=== PATIENT | male | born 1950 | race Caucasian/White ===

== ENCOUNTER 2022-06-02 13:11 | Outpatient (CLI) | payer MEDICARE, OTHER | END 2022-06-02 13:12 | disposition home or self-care (01) | LOC: RAD 13:11 | PROVIDERS: ATTEND Internal Medicine Critical Care Medicine | DX: R06.00 Dyspnea, unspecified (principal) | CPT/HCPCS: 71046 ==

== ENCOUNTER 2022-07-14 09:07 | Outpatient (CLI) | payer MEDICARE, OTHER | END 2022-07-14 09:08 | disposition home or self-care (01) | LOC: CT 09:07 | PROVIDERS: ATTEND Internal Medicine Critical Care Medicine | DX: R59.0 Localized enlarged lymph nodes (principal); K76.9 Liver disease, unspecified; C79.51 Secondary malignant neoplasm of bone; C78.7 Secondary malignant neoplasm of liver and intrahepatic bile duct; R91.8 Other nonspecific abnormal finding of lung field; I70.90 Unspecified atherosclerosis | CPT/HCPCS: 71250; 78815; A9552 ==

== ENCOUNTER 2022-07-24 14:41 | Outpatient (CLI) | payer MEDICARE, OTHER | END 2022-07-24 14:42 | disposition home or self-care (01) | LOC: LABBT 14:41 | PROVIDERS: ATTEND Internal Medicine Critical Care Medicine | DX: Z20.822 Contact with and (suspected) exposure to COVID-19 (principal) | CPT/HCPCS: 87811 ==

== ENCOUNTER 2022-07-28 08:25 | Day surgery (SDC) | payer MEDICARE, OTHER ==
[2022-07-27 11:10] VITALS: BMI 27.2
[2022-07-28 08:46] LABS: #Eosinphils 0.2 thou/uL (0.0-0.7); #Lymphocytes 1.2 thou/uL (1.20-3.40); #Monocytes 0.6 thou/uL (0.11-0.59); #Neutrophils 5.9 thou/uL (1.40-6.50); %Basophils 0.6 % (0.0-1.0); %Eosinophils 2.3 % (0.0-10.0); %Lymphocytes 15.2 % (21.0-51.0); %Monocytes 7.8 % (0.0-10.0); %Neutrophils 74.1 % (42.0-75.0); Hemoglobin 15.4 g/dL (14.0-18.0); Mean Corpuscular HGB CONC 31.9 g/dL (32.0-36.0); Mean Corpuscular Hemoglobin 29.9 pg (27.0-31.0); Mean Corpuscular Volume 93.8 fL (78.0-98.0); Mean Platelet Volume 8.9 fL (7.4-10.4); Platelet Count 177 thou/uL (130-400); RBC Distribution Width 14.1 % (11.5-14.5); Red Blood Cell (RBC) Count 5.16 mill/uL (4.70-6.10); White Blood Cell (WBC) Count 7.9 thou/uL (4.8-10.8)
[2022-07-28 09:37] LABS: INR-International Normal Ratio 1.2; PTT 33.1 sec (22.9-36.1); Prothrombin Time 15.6 sec (12.0-14.7)
[2022-07-28 09:56] VITALS: BP 142/93; TEMP 98
== END 2022-07-28 14:06 | disposition home or self-care (01) ==
LOC: CT 08:25
PROVIDERS: ATTEND Internal Medicine Critical Care Medicine
PROC: 0FB23ZX Excision of Left Lobe Liver, Percutaneous Approach, Diagnostic (ICD-10-PCS; principal; 2022-07-28)
DX: C7B.8 Other secondary neuroendocrine tumors (principal); C80.1 Malignant (primary) neoplasm, unspecified; J44.9 Chronic obstructive pulmonary disease, unspecified; I10 Essential (primary) hypertension; I25.10 Atherosclerotic heart disease of native coronary artery without angina pectoris; E78.5 Hyperlipidemia, unspecified; I49.9 Cardiac arrhythmia, unspecified; Z79.01 Long term (current) use of anticoagulants; Z79.82 Long term (current) use of aspirin; Z79.899 Other long term (current) drug therapy; Z88.0 Allergy status to penicillin; Z88.8 Allergy status to other drugs, medicaments and biological substances; Z95.2 Presence of prosthetic heart valve; Z95.5 Presence of coronary angioplasty implant and graft
CPT/HCPCS: 36415; 47000; 77012; 85025; 85610; 85730; 88307; 88313; 88333; 88341; 88342

== ENCOUNTER 2022-08-12 12:26 | Outpatient (CLI) | payer MEDICARE, OTHER | END 2022-08-12 12:27 | disposition home or self-care (01) | LOC: SCSMRI 12:26 | PROVIDERS: ATTEND Internal Medicine | DX: C34.90 Malignant neoplasm of unspecified part of unspecified bronchus or lung (principal); G31.9 Degenerative disease of nervous system, unspecified; I69.398 Other sequelae of cerebral infarction; G93.89 Other specified disorders of brain; R90.82 White matter disease, unspecified | CPT/HCPCS: 70553 ==

== ENCOUNTER 2022-08-27 12:10 | Outpatient (CLI) | payer MEDICARE, OTHER | END 2022-08-27 12:11 | disposition home or self-care (01) | LOC: BICRAD 12:10 | PROVIDERS: ATTEND Internal Medicine | DX: C34.90 Malignant neoplasm of unspecified part of unspecified bronchus or lung (principal); R05.9 Cough, unspecified; J98.4 Other disorders of lung; M41.9 Scoliosis, unspecified | CPT/HCPCS: 71046 ==

== ENCOUNTER 2022-09-17 08:45 | Outpatient (CLI) | payer MEDICARE, OTHER | END 2022-09-17 08:46 | disposition home or self-care (01) | LOC: PET 08:45 | PROVIDERS: ATTEND Internal Medicine | DX: C34.90 Malignant neoplasm of unspecified part of unspecified bronchus or lung (principal); Z79.899 Other long term (current) drug therapy | CPT/HCPCS: 78815; A9552 ==

== ENCOUNTER 2022-10-23 10:52 | Day surgery (SDC) | payer MEDICARE, OTHER ==
[2022-10-23] MEDS ORDERED: Acetaminophen 500 MG TAB ONE (11:51)
[2022-10-23] MEDS ORDERED: diphenhydrAMINE 25 MG CAP ONE (11:51)
[2022-10-23 15:04] VITALS: BP 107/71; TEMP 97.7
== END 2022-10-23 15:05 | disposition home or self-care (01) ==
LOC: ONC/OP 10:52
PROVIDERS: ATTEND Internal Medicine
PROC: 30233N1 Transfusion of Nonautologous Red Blood Cells into Peripheral Vein, Percutaneous Approach (ICD-10-PCS; principal; 2022-10-23)
DX: D64.9 Anemia, unspecified (principal); D69.6 Thrombocytopenia, unspecified; Z88.0 Allergy status to penicillin; Z88.8 Allergy status to other drugs, medicaments and biological substances; R05.9 Cough, unspecified
CPT/HCPCS: 36430; 71046; 86850; 86900; 86901; J1642; P9016

== ENCOUNTER 2022-11-03 13:15 | Outpatient (CLI) | payer MEDICARE, OTHER | END 2022-11-03 13:16 | LOC: PET 13:15 | PROVIDERS: ATTEND Internal Medicine | DX: C34.90 Malignant neoplasm of unspecified part of unspecified bronchus or lung (principal); Z79.899 Other long term (current) drug therapy | CPT/HCPCS: 78815; A9552 ==

== ENCOUNTER 2023-01-01 17:35 | Inpatient (IN) | payer MEDICARE, OTHER ==
[2023-01-01 18:01] LABS: Hemoglobin 14.8 g/dL (14.0-18.0); Mean Corpuscular HGB CONC 31.1 g/dL (32.0-36.0); Mean Corpuscular Hemoglobin 32.7 pg (27.0-31.0); Mean Platelet Volume 8.7 fL (7.4-10.4); Platelet Count 166 10x3/uL (130-400); RBC Distribution Width 13.7 % (11.5-14.5); Red Blood Cell (RBC) Count 4.53 mill/uL (4.70-6.10); White Blood Cell (WBC) Count 6.4 10x3/uL (4.8-10.8)
[2023-01-01 18:07] LABS: #Eosinphils 0.2 thou/uL (0.0-0.7); #Lymphocytes 1.2 thou/uL (1.20-3.40); #Monocytes 0.6 thou/uL (0.11-0.59); #Neutrophils 4.3 thou/uL (1.40-6.50); %Basophils 0.7 % (0.0-1.0); %Eosinophils 3.3 % (0.0-10.0); %Lymphocytes 18.7 % (21.0-51.0); %Monocytes 9.8 % (0.0-10.0); %Neutrophils 67.4 % (42.0-75.0)
[2023-01-01 18:10] LABS: INR-International Normal Ratio 1.2; Prothrombin Time 15.8 sec (12.0-14.7)
[2023-01-01 18:11] LABS: PTT 31.5 sec (22.9-36.1)
[2023-01-01 18:20] LABS: ALT (SGPT) 8 U/L (8-55); AST (SGOT) 17 U/L (5-34); Albumin 3.9 g/dL (3.4-4.8); Alkaline Phosphatase 137 U/L (40-110); Anion Gap 12 mmol/L (10-20); BUN (Urea Nitrogen) 15 mg/dL (8.4-25.7); Bilirubin, Total 0.5 mg/dL (0.2-1.2); Calc. Creatinine Clearance 0 mL/min (70-130); Calcium 9.7 mg/dL (7.8-10.44); Carbon Dioxide 30 mmol/L (23-31); Chloride 103 mmol/L (98-107); Estimated GFR 90; Globulin 4.1 g/dL (2.4-3.5); Glucose 89 mg/dL (83-110); Potassium 5.1 mmol/L (3.5-5.1); Sodium 140 mmol/L (136-145)
[2023-01-01 18:22] LABS: MDiff Complete? YES
[2023-01-01 18:23] LABS: Macrocytosis SLIGHT = 6-15 cells (100X) (0-5/hpf); Platelet Morphology Comment Appears Adequate
[2023-01-01] MEDS ORDERED: Acetaminophen 325 MG TAB PO PRN (19:56)
[2023-01-01] MEDS ORDERED: Ondansetron PF 4 MG/2 ML Vial IVP PRN (19:56)
[2023-01-01] MEDS ORDERED: hydrALAZINE 20 MG/ML VIAL SLOW IVP PRN (19:56)
[2023-01-01] MEDS ORDERED: Ondansetron ODT 4 MG TAB PO PRN (19:56)
[2023-01-01 20:25] LABS: Hemoglobin A1c 4.7 % (4.0-6.0)
[2023-01-01] MEDS ORDERED: Atorvastatin Calcium 40 MG TAB PO SCH (21:00)
[2023-01-01 23:07] VITALS: BMI 24.7
[2023-01-01] MEDS: Apixaban 5 MG TAB PO SCH (23:41)
[2023-01-02 00:30] LABS: Bacteria/HPF None Seen HPF (None Seen); Bilirubin Negative (Negative); Blood, Urine Negative (Negative); CAUTI Indications for Culture Alt mental st,lethar; Clarity Clear (Clear); Glucose, Urine (Dipstick) Normal (Negative); Ketone, Urine Negative (Negative); Leukocyte Negative Leu/uL (Negative); Nitrite Negative (Negative); Protein, Urine (Dipstick) Negative (Neg-Trace); RBC/HPF 0-3 HPF (0-3); Specific Gravity, Urine 1.013 (1.002-1.036); Squamous Epithelial 0-3 HPF (0-3); Urobilinogen Normal mg/dL (Less than 2); WBC/HPF 0-3 HPF (0-3)
[2023-01-02 00:31] LABS: Urine Culture Reflex No No
[2023-01-02 05:47] LABS: #Eosinphils 0.2 thou/uL (0.0-0.7); #Lymphocytes 1.3 thou/uL (1.20-3.40); #Monocytes 0.8 thou/uL (0.11-0.59); #Neutrophils 5.2 thou/uL (1.40-6.50); %Basophils 0.7 % (0.0-1.0); %Eosinophils 3.1 % (0.0-10.0); %Lymphocytes 17.3 % (21.0-51.0); %Monocytes 10.9 % (0.0-10.0); %Neutrophils 68.1 % (42.0-75.0); Hemoglobin 13.8 g/dL (14.0-18.0); Mean Corpuscular HGB CONC 31.5 g/dL (32.0-36.0); Mean Corpuscular Hemoglobin 32.7 pg (27.0-31.0); Mean Platelet Volume 8.6 fL (7.4-10.4); Platelet Count 142 10x3/uL (130-400); RBC Distribution Width 13.7 % (11.5-14.5); Red Blood Cell (RBC) Count 4.22 mill/uL (4.70-6.10); White Blood Cell (WBC) Count 7.6 10x3/uL (4.8-10.8)
[2023-01-02 06:11] LABS: Anion Gap 12 mmol/L (10-20); BUN (Urea Nitrogen) 15 mg/dL (8.4-25.7); Calc. Creatinine Clearance 98 mL/min (70-130); Calcium 9.3 mg/dL (7.8-10.44); Carbon Dioxide 25 mmol/L (23-31); Chloride 105 mmol/L (98-107); Cholesterol 127 mg/dl (< 200 Desired); Estimated GFR 95; Glucose 99 mg/dL (83-110); HDL Cholesterol 21 mg/dL (>60 Neg Risk); LDL Cholesterol, Calculated 45 mg/dL; Magnesium 1.3 mg/dL (1.6-2.6); Potassium 3.5 mmol/L (3.5-5.1); Sodium 138 mmol/L (136-145); Triglycerides 303 mg/dL (Less than 150)
[2023-01-02] MEDS: Aspirin 81 mg Enteric Coated Tablet PO SCH (10:06)
[2023-01-02] MEDS: Apixaban 5 MG TAB PO SCH ×2 (10:06→20:18)
[2023-01-02] MEDS ORDERED: Albuterol 200 PUFF (6.7GM INHALER) INH PRN (10:28)
[2023-01-02] MEDS: Mometasone 200 MCG/Formoterol 5 MCG 120 PUFF INHALER INH SCH (20:06)
[2023-01-02] MEDS: Vit A,C & E/Lutein/Minerals Tablet PO SCH (20:18)
[2023-01-02] MEDS: Cholecalciferol 1,000 UNITS (25 MCG) TAB PO SCH (20:18)
[2023-01-02] MEDS ORDERED: VIT C PO SCH (21:00)
[2023-01-02] MEDS ORDERED: COPPER PO SCH (21:00)
[2023-01-02] MEDS ORDERED: ZINC PO SCH (21:00)
[2023-01-02] MEDS ORDERED: [UNRECOGNIZED DRUG - OTHER] PO SCH (21:00)
[2023-01-02] MEDS ORDERED: VIT A PO SCH (21:00)
[2023-01-02] MEDS ORDERED: Non-Formulary Item 1 EACH (Trazodone Hcl [Trazodone Hcl] 100 MG Tablet) PO SCH (21:00)
[2023-01-02] MEDS ORDERED: Digoxin 0.25 MG TAB PO SCH (21:00)
[2023-01-02] MEDS ORDERED: Non-Formulary Item 1 EACH (Budesonide-Formoterol [Symbicort 160-4.5] 160 MG/4.5 MG Aer) INH SCH (21:00)
[2023-01-02] MEDS ORDERED: Non-Formulary Item 1 EACH (Cholecalciferol (Vitamin D3) [Vitamin D3] 5,000 UNITS Capsule) PO SCH (21:00)
[2023-01-02] MEDS ORDERED: Atorvastatin Calcium 40 MG TAB PO SCH (21:00)
[2023-01-02] MEDS ORDERED: traZODone HCl 50 MG TAB PO SCH (21:00)
[2023-01-02] MEDS ORDERED: VIT E PO SCH (21:00)
[2023-01-03 06:27] LABS: #Basophils 0.1 thou/uL (0.0-0.2); #Eosinphils 0.2 thou/uL (0.0-0.7); #Lymphocytes 1.2 thou/uL (1.20-3.40); #Monocytes 0.7 thou/uL (0.11-0.59); #Neutrophils 2.9 thou/uL (1.40-6.50); %Eosinophils 3.2 % (0.0-10.0); %Lymphocytes 23.7 % (21.0-51.0); %Monocytes 13.7 % (0.0-10.0); %Neutrophils 58.4 % (42.0-75.0); Hemoglobin 13.7 g/dL (14.0-18.0); Mean Corpuscular Hemoglobin 31.6 pg (27.0-31.0); Mean Platelet Volume 9.2 fL (7.4-10.4); Platelet Count 118 10x3/uL (130-400); RBC Distribution Width 13.8 % (11.5-14.5); Red Blood Cell (RBC) Count 4.35 mill/uL (4.70-6.10); White Blood Cell (WBC) Count 4.9 10x3/uL (4.8-10.8)
[2023-01-03 06:42] LABS: BUN (Urea Nitrogen) 18 mg/dL (8.4-25.7); Calc. Creatinine Clearance 90 mL/min (70-130); Calcium 9.8 mg/dL (7.8-10.44); Carbon Dioxide 19 mmol/L (23-31); Chloride 109 mmol/L (98-107); Estimated GFR 92; Glucose 98 mg/dL (83-110); Potassium 4.8 mmol/L (3.5-5.1); Sodium 138 mmol/L (136-145)
[2023-01-03 06:53] LABS: Anion Gap 19 mmol/L (10-20)
[2023-01-03] MEDS: Mometasone 200 MCG/Formoterol 5 MCG 120 PUFF INHALER INH SCH (07:29)
[2023-01-03 08:30] VITALS: TEMP 97.5
[2023-01-03] MEDS ORDERED: Non-Formulary Item 1 EACH (Tiotropium [Spiriva Handihaler] 18 MCG Box) INH SCH (09:00)
[2023-01-03] MEDS ORDERED: Citalopram 20 MG TAB PO SCH (09:00)
[2023-01-03] MEDS ORDERED: Potassium Chloride 10 MEQ TAB PO SCH (09:00)
[2023-01-03] MEDS ORDERED: Furosemide 40 MG TAB PO SCH (09:00)
[2023-01-03] MEDS ORDERED: Ipratropium Bromide 2.5 ml Neb NEB SCH (09:00)
[2023-01-03] MEDS: Vit A,C & E/Lutein/Minerals Tablet PO SCH (09:48)
[2023-01-03] MEDS: Aspirin 81 mg Enteric Coated Tablet PO SCH (09:48)
[2023-01-03] MEDS: Apixaban 5 MG TAB PO SCH (09:49)
[2023-01-03] MEDS ORDERED: Magnesium Sulfate In Water 4 GM in Premix Bag 1 BAG IVPB SCH (10:45)
[2023-01-03] MEDS: Cholecalciferol 1,000 UNITS (25 MCG) TAB PO SCH (12:01)
[2023-01-03 14:44] VITALS: BP 118/79
[2023-01-05] MEDS ORDERED: FLU VACC QS2022-23(65YR UP)/PF 240 MCG/0.7 ML SYRINGE IM ONE (09:00)
== END 2023-01-03 14:10 | disposition home health service (06) | DRG 65 ==
LOC: ERS 17:35 → NEURO 19:39 → OBSVTOIN 01-02 16:00
PROVIDERS: ADMIT Student in an Organized Health Care Education/Training Program; ATTEND Internal Medicine
DX: I63.81 Other cerebral infarction due to occlusion or stenosis of small artery (principal); C34.90 Malignant neoplasm of unspecified part of unspecified bronchus or lung; I48.20 Chronic atrial fibrillation, unspecified; Z20.822 Contact with and (suspected) exposure to COVID-19; J44.9 Chronic obstructive pulmonary disease, unspecified; I10 Essential (primary) hypertension; F17.290 Nicotine dependence, other tobacco product, uncomplicated; R47.01 Aphasia; E78.00 Pure hypercholesterolemia, unspecified; E83.42 Hypomagnesemia; R29.701 NIHSS score 1; Z88.0 Allergy status to penicillin; Z88.8 Allergy status to other drugs, medicaments and biological substances; Z79.01 Long term (current) use of anticoagulants; Z79.82 Long term (current) use of aspirin; Z79.51 Long term (current) use of inhaled steroids; Z79.899 Other long term (current) drug therapy; Z98.1 Arthrodesis status; Z98.890 Other specified postprocedural states
CPT/HCPCS: 36415; 36416; 70450; 70551; 80048; 80053; 80061; 81001; 83036; 83735; 84484; 85025; 85610; 85730; 93005; 93880; 94640; G0378; J1642; J3475; U0003; U0005

== ENCOUNTER 2023-01-22 08:00 | Outpatient (CLI) | payer MEDICARE, OTHER | END 2023-01-22 08:01 | disposition home or self-care (01) | LOC: PET 08:00 | PROVIDERS: ATTEND Internal Medicine | DX: C34.90 Malignant neoplasm of unspecified part of unspecified bronchus or lung (principal); C79.51 Secondary malignant neoplasm of bone | CPT/HCPCS: 78815; A9552 ==

== ENCOUNTER 2023-03-10 09:30 | Outpatient (CLI) | payer MEDICARE, OTHER | END 2023-03-10 09:31 | disposition home or self-care (01) | LOC: PET 09:30 | PROVIDERS: ATTEND Internal Medicine | DX: C34.90 Malignant neoplasm of unspecified part of unspecified bronchus or lung (principal); C79.51 Secondary malignant neoplasm of bone | CPT/HCPCS: 78815; A9552 ==

== ENCOUNTER 2023-03-19 20:46 | Emergency (ER) | payer MEDICARE, OTHER ==
[2023-03-19 22:03] LABS: #Lymphocytes 0.7 thou/uL (1.20-3.40); #Monocytes 0.6 thou/uL (0.11-0.59); #Neutrophils 10.1 thou/uL (1.40-6.50); %Basophils 0.2 % (0.0-1.0); %Eosinophils 0.2 % (0.0-10.0); %Lymphocytes 5.9 % (21.0-51.0); %Monocytes 5.5 % (0.0-10.0); %Neutrophils 88.1 % (42.0-75.0); Hemoglobin 12.3 g/dL (14.0-18.0); Mean Corpuscular HGB CONC 33.8 g/dL (32.0-36.0); Mean Corpuscular Hemoglobin 32.8 pg (27.0-31.0); Mean Platelet Volume 8.1 fL (7.4-10.4); Platelet Count 169 10x3/uL (130-400); RBC Distribution Width 16.1 % (11.5-14.5); Red Blood Cell (RBC) Count 3.74 mill/uL (4.70-6.10); White Blood Cell (WBC) Count 11.4 10x3/uL (4.8-10.8)
[2023-03-19 22:23] LABS: ALT (SGPT) 12 U/L (8-55); AST (SGOT) 11 U/L (5-34); Albumin 3.5 g/dL (3.4-4.8); Alkaline Phosphatase 86 U/L (40-110); Anion Gap 18 mmol/L (10-20); BUN (Urea Nitrogen) 21 mg/dL (8.4-25.7); Bilirubin, Total 0.2 mg/dL (0.2-1.2); Calc. Creatinine Clearance 0 mL/min (70-130); Calcium 9.9 mg/dL (7.8-10.44); Carbon Dioxide 23 mmol/L (23-31); Chloride 106 mmol/L (98-107); Estimated GFR 73; Globulin 3.1 g/dL (2.4-3.5); Glucose 129 mg/dL (83-110); Potassium 4.2 mmol/L (3.5-5.1); Protein, Total 6.6 g/dL (5.8-8.1); Sodium 143 mmol/L (136-145)
== END 2023-03-19 23:02 | disposition home or self-care (01) ==
LOC: ERS 20:46
DX: R40.4 Transient alteration of awareness (principal); D72.829 Elevated white blood cell count, unspecified; J44.9 Chronic obstructive pulmonary disease, unspecified; Z79.82 Long term (current) use of aspirin; Z79.01 Long term (current) use of anticoagulants; Z79.899 Other long term (current) drug therapy
CPT/HCPCS: 36415; 70450; 80053; 85025

== ENCOUNTER 2023-03-29 10:18 | Emergency (ER) | payer MEDICARE, OTHER ==
[2023-03-29 10:53] LABS: #Basophils 0.1 thou/uL (0.0-0.2); #Monocytes 0.8 thou/uL (0.11-0.59); #Neutrophils 12.1 thou/uL (1.40-6.50); %Basophils 0.4 % (0.0-1.0); %Lymphocytes 3.3 % (21.0-51.0); %Monocytes 5.7 % (0.0-10.0); %Neutrophils 85.4 % (42.0-75.0); Hemoglobin 15.1 g/dL (14.0-18.0); Mean Corpuscular HGB CONC 32.4 g/dL (32.0-36.0); Mean Corpuscular Hemoglobin 31.3 pg (27.0-31.0); Mean Corpuscular Volume 96.5 fl (78.0-98.0); Mean Platelet Volume 10.7 fL (7.4-10.4); Platelet Count 111 10x3/uL (130-400); RBC Distribution Width 18.5 % (11.5-14.5); Red Blood Cell (RBC) Count 4.83 mill/uL (4.70-6.10); White Blood Cell (WBC) Count 14.1 10x3/uL (4.8-10.8)
[2023-03-29 11:12] LABS: ALT (SGPT) 19 U/L (8-55); AST (SGOT) 13 U/L (5-34); Albumin 3.6 g/dL (3.4-4.8); Alkaline Phosphatase 78 U/L (40-110); Anion Gap 14 mmol/L (10-20); BUN (Urea Nitrogen) 30 mg/dL (8.4-25.7); Bilirubin, Total 0.8 mg/dL (0.2-1.2); Calc. Creatinine Clearance 0 mL/min (70-130); Calcium 8.7 mg/dL (7.8-10.44); Carbon Dioxide 26 mmol/L (23-31); Chloride 102 mmol/L (98-107); Estimated GFR 75; Globulin 2.5 g/dL (2.4-3.5); Glucose 115 mg/dL (83-110); Lipase 16 U/L (8-78); Potassium 4.7 mmol/L (3.5-5.1); Protein, Total 6.1 g/dL (5.8-8.1); Sodium 137 mmol/L (136-145)
[2023-03-29 11:37] LABS: Band 1 % (5-11); Burr Cells SLIGHT = 2-5 cells HPF (0-1); CellaVision Operator ID LAB.GE; Lymphocytes 4 % (21-51); Metamyelocyte 1 % (0-0); Monocytes 6 % (0-10); Neutrophil 88 % (42-75); Platelet Morphology Comment Platelets Decreased; Polychromasia SLIGHT = 2-3 cells HPF (0-2); Total Cell Count 100
[2023-03-29 11:41] LABS: Digoxin 2.64 ng/mL (0.8-2.0)
[2023-03-29 11:48] LABS: CKMB 1.5 ng/mL (0-6.6)
[2023-03-29] MEDS ORDERED: Atropine Sulfate 1 mg/10 ml Syringe ONE (12:00)
[2023-03-29 14:14] LABS: Lactic Acid 2.3 mmol/L (0.5-2.2)
== END 2023-03-29 14:40 | disposition short-term general hospital (02) ==
LOC: ERS 10:18
DX: R00.1 Bradycardia, unspecified (principal); T46.0X1A Poisoning by cardiac-stimulant glycosides and drugs of similar action, accidental (unintentional), initial encounter; J44.9 Chronic obstructive pulmonary disease, unspecified; D72.829 Elevated white blood cell count, unspecified; Z79.82 Long term (current) use of aspirin; Z79.01 Long term (current) use of anticoagulants; Z79.899 Other long term (current) drug therapy
CPT/HCPCS: 36415; 71045; 80053; 80162; 82553; 83605; 83690; 84443; 84484; 85025; 93005; J0461